=== PATIENT | male | born 2005 | race African-American/Black ===

== ENCOUNTER 2025-06-30 17:58 | Emergency (ER) | payer BC, SELFPAY ==
[2025-06-30 18:16] VITALS: BP 143/67; PULSE 62; RESP 16; TEMP 37.1; O2SAT 100
--- OUTSIDE RECORDS SUMMARY | 2025-06-30 18:28 | XMS_ITS | Clinical Summary ---
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 All risks and benefits of surgery were discussed with parent, including time for surgery, anesthesia, recovery time, potential complications such as bleeding, infection, need for further surgeries, and post-operative care and pain, and they have agreed to proceed. Post operative follow up will be scheduled by the Urology office. Discussed in-office procedure as well which was declined. Immunizations Immunization Administration Dates Next Due Dtap 06/01/2004,02/20/2004 Dtap (Generic) 08/18/2004,06/21/2004,05/24/2004 ,01/26/2004 Hepatitis A (Generic) 05/01/2012,02/10/2011 Hepatitis B (Generic Peds) 03/30/2005,08/18/2004 ,01/26/2004,2003 Hib (Generic) 03/30/2005,08/18/2004,06/01/2004 ,01/26/2004 MMR (Generic) 08/25/2009,07/07/2005 Meningococcal (Menactra) 08/10/2020,02/18/2015 Pneumococcal (Prevnar 7) 03/30/2005,11/16/2004,0 06/21/2004 Polio Ipv (Generic) 08/25/2009,07/07/2005,2003,02/20/2004 Tdap (Generic) 02/18/2015 Varicella (Generic) 08/25/2009,11/16/2004 Varicella Vaccine 07/07/2005 Family History Medical History Relation Comments Hypertension Mother Relation Status Comments Father Alive Mother Alive Social History Tobacco Use Types Packs/Day Years Used Date Smoking Tobacco: Never Smokeless Tobacco: Never Tobacco Cessation:Counseling Given: Yes Alcohol Use Standard Drinks/Week Comments No 0 (1 standard drink = 0.6 oz pur e alcohol) AUDIT-C Answer Date Recorded Frequency of Alcohol Consumption Never 05/02/2019 Average Number of Drinks Not on file 019 Frequency of Binge Drinking Not on file 10/2018 PHQ-2 Answer Date Recorded Patient Health Questionnaire-2 Score 0 10/28/2024 Sex and Gender Information Value Date Recorded Sex Assigned at Male 10/28/2024 3:56 PM PHYSICAL SCIENCE TECHNICIAN Legal Sex Male 7:30 PM CDT Gender Identity Male 10/28/2024 3:56 PM PHYSICAL SCIENCE TECHNICIAN Sexual Orientation Not on file Last Filed Vital Signs Vital Sign Reading Time Taken Comments Blood Pressure 138/70 10/28/2024 3:56 PM PHYSICAL SCIENCE TECHNICIAN Pulse 74 10/28/2024 3:56 PM PHYSICAL SCIENCE TECHNICIAN Temperature 36.3 C (97.4 F) 10/28/2024 3:56 PM PHYSICAL SCIENCE TECHNICIAN Respiratory Rate 18 10/28/2024 3:56 PM PHYSICAL SCIENCE TECHNICIAN Oxygen Saturation 99% 10/28/2024 3:56 PM PHYSICAL SCIENCE TECHNICIAN Inhaled Oxygen Concentration - - Weight 86.1 kg (189 lb 12.8 oz) 10/28/2024 3:56 PM PHYSICAL SCIENCE TECHNICIAN Height 175.3 cm (5' 9) 10/28/2024 3:56 PM PHYSICAL SCIENCE TECHNICIAN Body Mass Index 28.03 10/28/2024 3:56 PM PHYSICAL SCIENCE TECHNICIAN Plan of Treatment Health Maintenance Due Date Last Done Comments HPV Vaccines (1 - Male 3-dose series) 2018 Meningococcal B Vaccine (1 of 2 - Standard) 2019 Hepatitis C 2021 DTaP, Tdap and Td Vaccines (5 - Td or Tdap) 02/18/2025 02/18/2015, 08/18/2004, 06/21/2004, Additional history exists COVID-19 Vaccine ( season) 2025 Annual Physical 10/28/2025 10/28/2024, 03/0 06/2022, 08/10/2020, Additional history exists Hepatitis B Vaccines Completed 03/30/2005, 08/18/2004, 01/26/2004, Additional history exists Pneumococcal Vaccine: Pediatrics (0 to 5 Years) and At-Risk Patients (6 to 49 Years) Aged Out 03/30/2005, 11/16/2004, 06/21/2004 No longer eligible based on patient's age to complete this topic Meningococcal Vaccine Completed 08/10/2020, 015 PHQ-2 (Physician Lawrence) Completed 10/28/2024 RSV Immunizations Under 20 Months Aged Out No longer eligible based on patient's age to complete this [place] [address] [place] [id number] [facility] Care Teams Innovation Analyst Relationship Specialty Start Date End Date Teresa Foreman DO [address] [place] [id number] PCP - General FAMILY PRACTICE 01/27/21
--- OUTSIDE RECORDS SUMMARY | 2025-06-30 18:28 | XMS_ITS | Clinical Summary ---
Author Organization [facility] Address [address] [place] [id number] Care Team Providers Care Welder Assistant Name Role Phone No, Physician Primary Care Provider [phone] Allergies Active Allergy Reactions Criticality Noted Date Comments Penicillins Unknown 03/02/2024 Medications ondansetron ODT (ZOFRAN-ODT) 4 mg disintegrating tablet Take 1 tablet (4 mg total) by mouth every 4 (four) hours as needed for nausea or vomiting 20 tablet Active Social History Tobacco Use Types Packs/Day Years Used Date Smoking Tobacco: Never Assessed Personal Safety Answer Date Recorded Getting School Help Needed Not on file 03/02 Sex and Gender Information Value Date Recorded Sex Assigned at Not on file Legal Sex Male 1:43 AM CDT Gender Identity Not on file Sexual Orientation Not on file Last Filed Vital Signs Vital Sign Reading Time Taken Comments Blood Pressure 143/85 03/02/2024 1:58 AM CDT Pulse 65 03/02/2024 1:58 AM CDT Temperature 36.5 C (97.7 F) 03/02/2024 1:58 AM CDT Respiratory Rate 16 03/02/2024 1:58 AM CDT Oxygen Saturation 98% 03/02/2024 1:58 AM CDT Inhaled Oxygen Concentration - - Weight 84.8 kg (186 lb 15.2 oz) 03/02/2024 1:58 AM CDT Height 175.3 cm (5' 9) 03/02/2024 1:58 AM CDT Body Mass Index 27.61 03/02/2024 1:58 AM CDT Plan of Treatment Health Maintenance Due Date Last Done Comments Depression Screening 2003 Hepatitis C Screening 2003 HPV Vaccines (1 - Male 3-dos e series) 2018 Meningococcal B Vaccine (1 o f 2 - Standard) 2019 Regular Well Visit/Exam 18-64 2021 DTaP/Tdap/Td Vaccine (8 - Td or Tdap) 02/18/2025 02/18/2015, 02/18/2015, 08/25/2009, Additional history exists Influenza Vaccine (#1) 2025 Hepatitis B Screening Completed 03/30/2005 , 08/18/2004, 01/26/2004, Additional history exists Pneumococcal vaccine <65 Completed 005, 11/16/2004, 06/21/2004 Varicella Vaccines Completed 08/25/2009, 1 10/25/2008, 07/07/2005, Additional history exists Meningococcal Vaccine Completed 08/10/2020, 015 Insurance OOS Care Teams Welder Assistant Relationship Specialty Start Date End Date No, Physician PCP - General 03/02/24
[2025-06-30 18:37] LABS: Add Urine Microscopic? YES; Appearance Urine Clear (Clear); Glucose Urine UA Negative (Negative); Leukocyte Esterase Ur 2+ LEU/UL (Negative); Nitrate Urine Negative (Negative); Non Pathogenic Casts 0-2; Specific Grav Ur 1.027 (1.001-1.035)
--- NOTE | 2025-06-30 18:42 | ED_ITS ---
HPI - Male Genitourinary General Chief complaint: Urogenital-Male Stated complaint: STD check Time Seen by Provider: 06/30/25 18:05 Source: patient Mode of arrival: ambulatory Limitations: no limitations History of Present Illness HPI Narrative: Patient is a 19-year-old male who presents the ED with concern for STDs. Patient reports he had unprotected sexual intercourse around 1 month ago. A few days afterwards, he began having some ?tingling? with urination. Reports some discomfort. Is concerned for STDs. Would like to be treated for such. Denies penile drainage, genital lesions, testicular pain or swelling, hematuria, fevers. Related Data Allergies Allergy/AdvReac Type Severity Reaction Status Date / Time amoxicillin Allergy Unknown Verified 06/30/25 18:21 Review of Systems Review of Systems: All systems reviewed & are unremarkable except as noted in HPI. All systems reviewed & are unremarkable except as noted in HPI and below Exam Narrative: GENERAL: Well appearing, well-nourished, non-toxic, in no acute distress. HEAD: Normocephalic, atraumatic. RESPIRATORY: Airway patent, respirations nonlabored. CARDIOVASCULAR: Regular rate and rhythm MUSCULOSKELETAL: Moves all extremities. No gross deformities. SKIN: Warm, dry, normal color. NEURO: A&O X3. Speech clear. PSYCHIATRIC: Appropriate mood and affect. Normal interaction. Course Vital Signs Vital signs: Vital Signs Temperature 98.7 F 06/30/25 18:16 Pulse Rate 62 06/30/25 18:16 Respiratory Rate 16 06/30/25 18:16 Blood Pressure 143/67 H 06/30/25 18:16 Pulse Oximetry 100 06/30/25 18:16 Oxygen Delivery Room Air 06/30/25 18:16 Temperature 98.7 F 06/30/25 18:16 Pulse Rate 62 06/30/25 18:16 Respiratory Rate 16 06/30/25 18:16 Blood Pressure 143/67 H 06/30/25 18:16 Pulse Oximetry 100 06/30/25 18:16 Oxygen Delivery Room Air 06/30/25 18:16 MDM - Male Genitourinary MDM Narrative Medical decision making narrative: Patient presented to ED with concern for STDs. Wanting to be prophylactically treated. Reports dysuria, tingling. UA obtained, 2+ leuk esterase, 21-50 WBC. Sent for culture. Will treat for concurrent UTI. Started on Keflex. Patient given 0.5mg IM Rocephin in the ED and 1st dose of doxy. Prescriptions sent to pharmacy. Patient advised to utilize patient portal to look up test results. Advised to finish Keflex course regardless of STD results. Given return precautions. Discussed safe sex practices. Discharged in stable condition. Medical Records Attestation: I reviewed the patient's medical records. Lab Data Attestation: I reviewed the patient's lab results. Labs: Lab Results 06/30/25 06/30/25 Range/Units 18:22 18:23 Urine Color Yellow (Yellow) Urine Appearance Clear (Clear) Urine pH 7.5 (5.0-9.0) Ur Specific [place] 1.027 (1.001-1.035) Urine Protein Trace (Negative) mg/dL Urine Glucose (UA) Negative (Negative) mg/dL Urine Ketones Trace H (Negative) mg/dL Ur Blood (Man) Negative (Negative) Urine Nitrate Negative (Negative) Urine Bilirubin Negative (Negative) Urine Urobilinogen 1.0 (<2.0) mg/dL Leukocyte Esterase Rfl 2+ H (Negative) SOSA/UL Urine RBC 0-2 (0-2) /hpf Urine WBC 21-50 H (0-3) /hpf Ur Squamous Epith Cells None seen (Few) /hpf Urine Bacteria None seen /hpf Urine Casts 0-2 C. trachomatis (PCR) Detected A (NOT DETECTE) N. gonorrhoeae (PCR) Not detected (NOT DETECTE) T. vaginalis (PCR) Not detected (NOT DETECTE) Discharge Plan Discharge Clinical Impression: Concern about STD in male without diagnosis, Dysuria Urinary tract infection Qualifiers: Urinary tract infection type: acute cystitis Hematuria presence: without hematuria Qualified Code(s): N30.00 - Acute cystitis without hematuria Patient Disposition: Home Condition: Stable Instructions: Antibiotic Form, Sexually Transmitted Diseases (ED), Safe Sex Pra ctices (ED), Urinary Tract Infection in Men (ED) Additional Instructions: Take both antibiotics as prescribed. Utilize your patient portal to look up the results of your STD testing. If you test positive, complete both antibiotic courses. Complete Cephalexin/keflex regardless of results. Avoid further sexual intercourse until you have completed treatment and received test of cure. Notify all sexual partners to receive testing as well. Return to the ED for new or worsening concerns. Patient Language: Gambian Prescriptions: New doxycycline monohydrate 100 mg tablet 100 mg PO BID 7 Days Qty: 14 0RF cephalexin 500 mg capsule 500 mg PO BID 7 Days Qty: 14 0RF Follow-up/Referrals: Baldev Fontana MD [Primary Care Provider, Pediatrics] Time of Disposition: 18:47
[2025-06-30] MEDS: CEPHALEXIN 500 MG CAPSULE PO (18:49)
[2025-06-30] MEDS: DOXYCYCLINE HYCLATE 100 MG TABLET PO (18:49)
[2025-06-30] MEDS: LIDOCAINE 1% LOCAL INJ 10 ML VIAL (18:53)
[2025-06-30] MEDS: cefTRIAXone 1 GM VIAL 0.5 GM IM (18:53)
[2025-06-30 19:36] LABS: Trichomonas Vag PCR NOT DETECTED (NOT DETECTE)
== END 2025-06-30 19:02 | disposition home or self-care (01) ==
PROVIDERS: Emergency Provider Physician Assistant; PCP Pediatrics
DX: N30.00 Acute cystitis without hematuria (principal); R30.0 Dysuria; Z11.3 Encounter for screening for infections with a predominantly sexual mode of transmission
CPT/HCPCS: 81001; 87086; 87491; 87591; 87661; 96372; 99283; A9270; J0696; J2003